=== PATIENT | male | born 1975 | race Caucasian/White ===

== ENCOUNTER 2017-05-15 23:40 | Emergency (ER) | payer BC ==
[2017-05-16] MEDS ORDERED: TRANEXAMIC ACID 1,000 MG/10 ML VIAL TP ONE (00:21)
[2017-05-16] MEDS ORDERED: OXYMETAZOLINE 30 ML NASAL SPRAY ONE (00:22)
--- NOTE | 2017-05-16 01:29 | EDPHY ---
H & P Stated Complaint: epistaxis for over an hour Time Seen by Provider: 05/15/17 23:59 HPI/ROS: HPI The patient presents with epistaxis which began about an hour ago. He had some intermittent bleeding earlier today which improved and then tonight, bleeding became worse. He applied pressure but noticed that his nose was still dripping blood from the left naris. He has a history of epistaxis as a child but symptoms improved and he never had any interventions or cauterization. He occasionally takes ibuprofen, though not regularly. He does have a history of high blood pressure though is not on any medications.. REVIEW OF SYSTEMS Constitutional: No fever, no chills. Eyes: No discharge. ENT: No sore throat. Cardiovascular: No chest pain, no palpitations. Respiratory: No cough, no shortness of breath. Gastrointestinal: No abdominal pain, no vomiting. Genitourinary: No hematuria. Musculoskeletal: No back pain. Skin: No rashes. Neurological: No headache. PMHx: Elevated blood pressure readings in the past, not on any antihypertensives, history of epistaxis Soc Hx: Housed PHYSICAL General Appearance: Alert, no distress Eyes: Pupils equal and round no pallor or injection ENT, Mouth: Mucous membranes moist, small amount of active bleeding from left naris Respiratory: Breathing comfortably Neurological: A&O, moves all extremities Skin: Warm and dry, no rashes Musculoskeletal: Neck is supple non tender Extremities: symmetrical, full range of motion Psychiatric: Patient is oriented X 3, there is no agitation Source: Patient Exam Limitations: No limitations - Personal History Current Tetanus/Diphtheria Vaccine: Yes - Medical/Surgical History Hx Asthma: No Hx Chronic Respiratory Disease: No Hx Diabetes: No Hx Cardiac Disease: No Hx Renal Disease: No Hx Cirrhosis: No Hx Alcoholism: No Hx HIV/AIDS: No Hx Splenectomy or Spleen Trauma: No Other PMH: PSHx: denies. PMHx: denies - Social History Smoking Status: Never smoked Constitutional: Initial Vital Signs Heart Rate 106 H 05/15/17 23:42 Respiratory Rate 18 05/15/17 23:42 Blood Pressure 201/134 H 05/15/17 23:42 O2 Sat (%) 95 05/15/17 23:42 O2 Delivery Mode Room Air Allergies/Adverse Reactions: No Known Allergies Allergy (Unverified 05/15/17 23:42) Home Medications: Medication Instructions Recorded NK [No Known Home Meds] 05/15/17 Medical Decision Making Procedures: NOSE BLEED Procedure: Epistaxis control. Indication: nosebleed not controlled by direct pressure. Risks, benefits, alternatives discussed with patient and consent obtained. The left nares was anesthetized with lidocaine with epinephrine as well as Afrin. The anterior epistaxis was identified. The patient was treated with packing. TXA was placed on a cotton ball for 20 minutes and then removed. Following the procedure the patient was re-examined and the bleeding was well controlled. The patient tolerated the procedure well. The procedure was performed by myself. Differential Diagnosis: 41-year-old male presents with left-sided epistaxis. He is hypertensive on arrival. He is given an Afrin and lidocaine with epinephrine into the left nostril. Pressure was held. Patient had continued small amount of bleeding. Cotton soaked with T ex a was inserted into the left naris. Patient had complete resolution of bleeding. Examination of his naris and nasopharynx does not demonstrate any obvious source of bleeding, though I suspect anterior. Blood pressure improved somewhat though he was persistently hypertensive. He has a blood pressure cuff at home, he will likely need follow-up to see if he has any ongoing elevated blood pressure readings determine whether or not he needs any antihypertensive medications. He will be referred to ENT. - Data Points Medications Given: Discontinued Medications Tranexamic Acid (Cyklokapron) 500 mg TP EDNOW ONE Stop: 05/16/17 00:22 Last Admin: 05/16/17 00:41 Dose: Not Given Departure - Departure Disposition: Home, Routine, Self-Care Clinical Impression: Elevated blood pressure reading, Epistaxis Condition: Good Instructions: Nosebleed (ED) Additional Instructions: Please call the Ear Nose and Throat doctor that I have referred you to for follow-up for your nose bleeds. If this occurs again, I recommend that you blow your nose, use Afrin, pinch her nose for 10 minutes and see if this stops the bleeding. Please use Vaseline in your nose for the next few days. Referrals: Tasia Vila MD [Medical Doctor] - As per Instructions
[2017-05-16 01:40] VITALS: BP 189/99; PULSE 90; RESP 16; TEMP 97.9; O2SAT 96
== END 2017-05-16 01:39 | disposition home or self-care (01) ==
LOC: EDSEX 23:40
DX: R04.0 Epistaxis (principal); I10 Essential (primary) hypertension